=== PATIENT | female | born 1955 | race African-American/Black ===

== ENCOUNTER 2018-11-28 00:09 | Emergency (ER) | payer BC ==
[~2018-11-28] VITALS: Ht 154.9 cm; Wt 63.5 kg
[~2018-11-28 00:09] MED LIST: AZITHROMYCIN250 MG ORAL; CIPRO500 MG PO; CIPROFLOXACIN500 M2 ORAL; DOXYCYCLINE MO100 MG ORAL; IBUPROFEN600 MG ORAL; NKM; PHENAZOPYRIDIN200 MG ORAL
--- NOTE | 2018-11-28 00:23 | NUR ---
ED Nurse Note: pt walked in c/o Right thumb finger pain, pt states she slammed the car door on her finger. noted tenderness, redness, swelling and discoloration, cap refill <3sec, cms intact. will cont monitor.
[2018-11-28 00:30] VITALS: BP 167/98
--- NOTE | 2018-11-28 00:38 | Emergency Room Report ---
History of Present Illness General Chief Complaint: Upper Extremity Injury Source: Patient Present Illness HPI Is a 63-year-old female who is right-hand dominant. She presents with right thumb pain. She actually close a car door on her right thumb this evening. Complaining of throbbing pain. Pain is 8 out of 10. Worse with palpation and movement. Better with rest. Denies any other injury. Did not take anything for it. Allergies: Coded Allergies: No Known Allergies (Unverified , 11/28/18) Patient History Past Medical History: see triage record, old chart reviewed Past Surgical History: none Pertinent Family History: none Social History: Denies: smoking Immunizations: other Reviewed Nursing Documentation: PMH: Agreed; PSxH: Agreed Nursing Documentation-PMH Hx Cardiac Problems: No Hx Hypertension: No Hx Pacemaker: No Hx Asthma: No Hx COPD: No Hx Diabetes: No Hx Cancer: No Hx Gastrointestinal Problems: No Hx Dialysis: No History Of Psychiatric Problem: No Hx Neurological Problems: No Hx Cerebrovascular Accident: No Hx Seizures: No Review of Systems Eye: Denies: eye pain, blurred vision ENT: Denies: ear pain, nose congestion, throat swelling Respiratory: Denies: cough, shortness of breath Cardiovascular: Denies: chest pain, palpitations Gastrointestinal: Denies: abdominal pain, diarrhea, nausea, vomiting Musculoskeletal: Reports: joint pain; Denies: back pain Skin: Denies: rash Neurological: Denies: headache, numbness Endocrine: Denies: increased thirst, increased urine Hematologic/Lymphatic: Denies: easy bruising All Other Systems: negative except mentioned in HPI Physical Exam Vital Signs Date Time Temp Pulse Resp B/P (MAP) Pulse Ox O2 Delivery O2 Flow Rate FiO2 11/28/18 00:13 97.9 74 18 184/104 96 Room Air vitals normal except for high blood pressure Sp02 EP Interpretation: reviewed, normal General Appearance: well appearing, no apparent distress, alert Head: normocephalic, atraumatic Eyes: bilateral eye PERRL, bilateral eye EOMI ENT: hearing grossly normal, normal pharynx Neck: full range of motion, supple, no meningismus Respiratory: chest non-tender, lungs clear, normal breath sounds Cardiovascular #1: regular rate, rhythm, no murmur Gastrointestinal: normal bowel sounds, non tender, no mass, no organomegaly, no bruit, non-distended Musculoskeletal: back normal, gait/station normal, normal range of motion Psychiatric: mood/affect normal Skin: warm/dry Procedures Nail Trepanation Nail Trepanation : Consent: Verbal Nail Trepanation Location: Right thumb Method of Drainage: nail cauterized Finger Splint: Yes Patient Tolerated: Well Complications: None Medical Decision Making Diagnostic Impression: Primary Impression: Contusion of thumb (nail) Qualified Codes: S60.111A - Contusion of right thumb with damage to nail, initial encounter Additional Impressions: Subungual hematoma of finger of right hand Qualified Codes: S60.10XA - Contusion of unspecified finger with damage to nail, initial encounter Hypertension Qualified Codes: I10 - Essential (primary) hypertension ER Course Patient presents with subungual hematoma from contusion and crush injury. No fracture. May have nailbed injury. Better after cauterization. Patient said that she does not have high blood pressure. Normally it will get elevated but come back down. Last Vital Signs Date Time Temp Pulse Resp B/P (MAP) Pulse Ox O2 Delivery O2 Flow Rate FiO2 11/28/18 00:30 97.9 74 18 167/98 96 Room Air Status: improved Disposition: HOME, SELF-CARE Condition: Stable Scripts Ibuprofen* (MOTRIN*) 600 Mg Tablet 600 MG ORAL THREE TIMES A DAY, #30 TAB 0 Refills Prov: Sandepe Zeng MD 11/28/18 Additional Instructions: Elevate hand. Follow-up with your doctor in 7 days. Have your doctor recheck on your blood pressure. Return if symptom worsen. Sandeep Zeng MD Nov 28, 2018 00:38
[2018-11-28] MEDS ORDERED: IBUPROFEN600 MG ORAL (00:52)
--- NOTE | 2018-11-28 01:00 | NUR ---
ED Nurse Note: pt cleared to be d/c per ERMD, pt discharge/aftercare instruction provided w/ prescription, pt education done via discussion and handout, splint applied by archives technician and wound care done, pt advised to follow up with pcp or return to ed if sx worsen or new sx develop, pt verbalized understanding and agrees with plan, left w/ all belongings, vss, ambulatory w/ steady gait.
[2018-11-28 01:02] VITALS: BP 166/97
--- NOTE | 2018-11-28 01:03 | Diagnostic Imaging Report ---
EXAM: XR Right Finger(s), 3 Views CLINICAL HISTORY: Trauma. TECHNIQUE: Frontal, lateral and oblique views of thumb of the right hand. COMPARISON: No relevant prior studies available. FINDINGS: Bones/joints: No radiographic evidence of acute fracture or dislocation of the right thumb. Soft tissues: No evidence of significant soft tissue abnormality. No radiopaque foreign body. IMPRESSION: No evidence of acute fracture or dislocation of right thumb.
== END 2018-11-28 01:00 | disposition home or self-care (01) ==
LOC: EMR 00:54
DX: S60.111A Contusion of right thumb with damage to nail, initial encounter (principal); S60.10XA Contusion of unspecified finger with damage to nail, initial encounter; I10 Essential (primary) hypertension; W23.1XXA Caught, crushed, jammed, or pinched between stationary objects, initial encounter
CPT/HCPCS: 99283

== ENCOUNTER 2019-11-04 07:48 | Emergency (ER) | payer BC ==
[~2019-11-04] VITALS: Ht 160 cm; Wt 65.8 kg
[~2019-11-04 07:48] MED LIST changes: +CEPHALEXIN500 MG ORAL
--- NOTE | 2019-11-04 07:55 | NUR ---
ED Nurse Note: Pt ambulated to ED d/t burning sensation upon urination x 2 days; urine clear and bit yellowish. Pt denies fever or chills. VSS, on RA,NAD.
--- NOTE | 2019-11-04 08:00 | NUR ---
ED Nurse Note: Obtained urine specimen; sent to labs.
[2019-11-04 08:10] VITALS: BP 129/87
[2019-11-04 08:17] LABS: APPEARANCE,URINE SLIGHTLY CLOUDY; BILIRUBIN, URINE NEGATIVE (NEGATIVE); COLOR,URINE PALE YELLOW; GLUCOSE, URINE (UA) NEGATIVE (NEGATIVE); KETONES,URINE NEGATIVE (NEGATIVE); LEUKOCYTE ESTERASE ,URINE 3+ (NEGATIVE); NITRITE,URINE NEGATIVE (NEGATIVE); PH,URINE 6 (4.5-8.0); PROTEIN,URINE 3+ (NEGATIVE); UROBILINOGEN,URINE NORMAL MG/DL (0.0-1.0)
--- NOTE | 2019-11-04 08:18 | Emergency Room Report ---
History of Present Illness General Chief Complaint: Female Urogenital Problems Source: Patient Present Illness HPI 64-year-old female presents ED for evaluation. Complaining of dysuria and burning urination for the last 3 days. Pain is 6 out of 10, burning, nonradiating. Denies fevers or chills. Denies flank pain. Denies nausea or vomiting. No other aggravating relieving factors. Denies any other associated symptoms Allergies: Coded Allergies: No Known Allergies (Unverified , 11/28/18) Patient History Past Medical History: none Past Surgical History: none Pertinent Family History: none Social History: Denies: smoking, alcohol use, drug use Now: No Immunizations: UTD Reviewed Nursing Documentation: PMH: Agreed; PSxH: Agreed Nursing Documentation-PMH Past Medical History: No Stated History Hx Cardiac Problems: No Hx Hypertension: No Hx Pacemaker: No Hx Asthma: No Hx COPD: No Hx Diabetes: No Hx Cancer: No Hx Gastrointestinal Problems: No Hx Dialysis: No Hx Neurological Problems: No Hx Cerebrovascular Accident: No Hx Seizures: No Review of Systems All Other Systems: negative except mentioned in HPI Physical Exam Vital Signs Date Time Temp Pulse Resp B/P (MAP) Pulse Ox O2 Delivery O2 Flow Rate FiO2 11/04/19 07:51 98.4 78 15 129/87 (101) 95 Room Air Sp02 EP Interpretation: reviewed, normal General Appearance: no apparent distress, alert, GCS 15, non-toxic Head: normocephalic, atraumatic Eyes: bilateral eye normal inspection, bilateral eye PERRL ENT: hearing grossly normal, normal pharynx, no angioedema, normal voice Neck: full range of motion, supple/symm/no masses Respiratory: chest non-tender, lungs clear, normal breath sounds, speaking full sentences Cardiovascular #1: regular rate, rhythm, no edema Cardiovascular #2: 2+ carotid (R), 2+ carotid (L), 2+ radial (R), 2+ radial (L) , 2+ dorsalis pedis (R), 2+ dorsalis pedis (L) Gastrointestinal: normal bowel sounds, non tender, soft, non-distended, no guarding, no rebound Rectal: deferred Genitourinary: normal inspection, no CVA tenderness Musculoskeletal: back normal, normal range of motion, gait/station normal, non- tender Neurologic: alert, motor strength/tone normal, oriented x3, sensory intact, responsive, speech normal Psychiatric: judgement/insight normal, memory normal, mood/affect normal, no suicidal/homicidal ideation Reflexes: 3+ bicep (R), 3+ bicep (L), 3+ tricep (R), 3+ tricep (L), 3+ knee (R) , 3+ knee (L) Lymphatic: no adenopathy Medical Decision Making Diagnostic Impression: Primary Impression: Urinary tract infection Qualified Codes: N39.0 - Urinary tract infection, site not specified ER Course Hospital Course 64-year-old female presents to ED complaining of dysuria Differential diagnoses include: UTI, cystitis, pyelonephritis Clinical course Patient placed on stretcher. After initial history and physical I ordered UA UA + blood + bacteria. Given patient's discomfort and dysuria I agreed to treat patient with antibiotics. Patient agreed to plan. Patient well-appearing, nontoxic. Vital stable. Safe for discharge for close outpatient follow-up. States she has a PMD Diagnosis - UTI Stable and discharged home with prescriptions for Rx keflex, pyridium. Instructed to followup with PMD. Return to ED if symptoms recur or worsen Labs Test 11/04/19 08:00 Urine Color Pale yellow Urine Appearance Slightly cloudy Urine pH 6 (4.5-8.0) Urine Specific [place] 1.005 (1.005-1.035) Urine Protein 3+ (NEGATIVE) Urine Glucose (UA) Negative (NEGATIVE) Urine Ketones Negative (NEGATIVE) Urine Blood 5+ (NEGATIVE) Urine Nitrite Negative (NEGATIVE) Urine Bilirubin Negative (NEGATIVE) Urine Urobilinogen Normal MG/DL (0.0-1.0) Urine Leukocyte Esterase 3+ (NEGATIVE) Urine RBC 20-30 /HPF (0 - 2) Urine WBC Tntc /HPF (0 - 2) Urine Squamous Epithelial Cells Few /LPF (NONE/OCC) Urine Bacteria Few /HPF (NONE) Last Vital Signs Date Time Temp Pulse Resp B/P (MAP) Pulse Ox O2 Delivery O2 Flow Rate FiO2 11/04/19 08:10 98.4 72 15 129/87 95 Room Air Status: improved Disposition: HOME, SELF-CARE Condition: Stable Scripts Phenazopyridine Hcl* (PYRIDIUM*) 100 Mg Tablet 100 MG ORAL THREE TIMES A DAY for 3 Days, #9 TAB Prov: Gabriel Wu MD 11/04/19 Cephalexin* (KEFLEX*) 500 Mg Capsule 500 MG ORAL EVERY 6 HOURS for 7 Days, #28 CAP Prov: Gabriel Wu MD 11/04/19 Referrals: EDGARDO GREEN MD (PCP) Gabriel Wu MD Nov 04, 2019 08:18
[2019-11-04] MEDS ORDERED: PHENAZOPYRIDIN100 MG ORAL (08:47)
[2019-11-04] MEDS ORDERED: CEPHALEXIN500 MG ORAL (08:47)
[2019-11-04 08:50] VITALS: BP 130/88
--- NOTE | 2019-11-04 08:50 | NUR ---
ER DISCHARGE NOTE: Patient is cleared to be discharged per ERMD, pt is aox4, on room air, with stable vital signs. pt was given dc and prescription instructions, pt was able to verbalize understanding, pt id band removed. pt is able to ambulate with steady gait. pt took all belongings.
== END 2019-11-04 08:50 | disposition home or self-care (01) ==
LOC: EMR 08:04
DX: N39.0 Urinary tract infection, site not specified (principal)
CPT/HCPCS: 81003; 87086; 87181; 99283